=== PATIENT | female | born 1975 | race African-American/Black ===

== ENCOUNTER 2016-10-16 00:26 | Emergency (ER) | payer MEDICAID ==
[~2016-10-16] VITALS: Ht 170.2 cm; Wt 95.0 kg
[2016-10-16 00:31] VITALS: BP 218/114; PULSE 83; RESP 16; TEMP 99; O2SAT 100
[2016-10-16] MEDS ORDERED: ATEN50TA PO ×2 (01:30→05:18)
[2016-10-16] MEDS ORDERED: HYDR50TA3 PO (01:30)
[2016-10-16 01:35] VITALS: BP 192/117; PULSE 82; RESP 20; O2SAT 98
[2016-10-16 01:46] VITALS: BP 220/101; PULSE 78; RESP 20; O2SAT 98
[2016-10-16 02:14] LABS: AUTOMATED NEUTROPHIL # 6.1 TH/MM3 (1.8-7.7); BASOPHIL # 0.1 TH/MM3 (0-0.2); BASOPHIL % 0.8 % (0.0-2.0); EOSINOPHIL # 0.2 TH/MM3 (0-0.4); EOSINOPHIL % 1.8 % (0.0-4.0); HEMATOCRIT 34.8 % (35.0-46.0); HEMO FLAGS DIFF FINAL; LYMPH % 25.2 % (9.0-44.0); LYMPHOCYTE # 2.4 TH/MM3 (1.0-4.8); MEAN CELL VOLUME 80.9 FL (80.0-100.0); MEAN CORPUSCULAR HEMOGLOBIN 28.2 PG (27.0-34.0); MEAN CORPUSCULAR HGB CONC 34.9 % (32.0-36.0); MONO % 7.1 % (0.0-8.0); NEUT % 65.1 % (16.0-70.0); PLATELET COUNT 310 TH/MM3 (150-450); RED CELL DISTRIBUTION WIDTH 13.1 % (11.6-17.2); WHITE BLOOD COUNT 9.3 TH/MM3 (4.0-11.0)
[2016-10-16] MEDS ORDERED: LABETALOL HCL 100 MG/20 ML VIAL IV PUSH ONE (02:15)
--- NOTE | 2016-10-16 02:23 | RADRPT ---
EXAM DATE/TIME: 10/16/2016 01:50 [facility] COMPARISON: No previous studies available for comparison. INDICATIONS : Cough and throat pain. MEDICAL HISTORY : None. SURGICAL HISTORY : None. ENCOUNTER: Initial ACUITY: 1 day PAIN SCORE: 4/10 LOCATION: Bilateral chest FINDINGS: The lungs are clear without infiltrate, nodule, or mass. There is no appreciable pleural effusion fo r technique. Heart and mediastinum are unremarkable. CONCLUSION: No acute cardiopulmonary disease. Colby Langford MD on October 16, 2016 at 2:21 Board Certified Radiologist. This report was verified electronically.
[2016-10-16] MEDS ORDERED: ACETAMINOPHEN/HYDROcodone 325 MG/10 MG TAB PO ONE (02:30)
[2016-10-16 02:34] LABS: POTASSIUM 3.8 MEQ/L (3.5-5.1)
[2016-10-16] MEDS ORDERED: AZITHROMYCIN 250 MG TAB PO ONE (02:45)
[2016-10-16] MEDS ORDERED: KETOROLAC TROMETHAMINE 30 MG/ML (IVP) VIAL IV PUSH ONE ×2 (03:00→04:45)
[2016-10-16 03:16] VITALS: BP 201/92; PULSE 75; RESP 20; O2SAT 99
--- NOTE | 2016-10-16 03:41 | RADRPT ---
EXAM DATE/TIME: 10/16/2016 02:59 [facility] COMPARISON: No previous studies available for comparison. INDICATIONS : Cephalgia. RADIATION DOSE: 51.39 CTDIvol (mGy) MEDICAL HISTORY : Hypertension. SURGICAL HISTORY : Tubal ligation. Hysterectomy. ENCOUNTER: Initial ACUITY: 1 day PAIN SCALE: 5/10 LOCATION: cranial TECHNIQUE: Multiple contiguous axial images were obtained of the head. Using automated exposure control and adj ustment of the mA and/or kV according to patient size, radiation dose was kept as low as reasonably a chievable to obtain optimal diagnostic quality images. FINDINGS: There is no evidence for intracranial hemorrhage, mass effect, mass lesions, edema, or extra-axial fl uid collections. The visualized bony structures appear intact. The ventricles are normal size for t he patient's age. There are no signs of acute infarction for technique. CONCLUSION: Unremarkable study. Colby Langford MD on October 16, 2016 at 3:39 Board Certified Radiologist. This report was verified electronically.
[2016-10-16] MEDS ORDERED: hydrALAZINE HCL 50 MG TAB PO ONE (04:00)
[2016-10-16 04:23] VITALS: BP 185/104
[2016-10-16 04:38] LABS: BLOOD, URINE NEG (NEG); GLUCOSE,URINE NEG (NEG); KETONE, URINE NEG (NEG); NITRITE,URINE NEG (NEG); SQUAMOUS EPITHELIAL CELL URINE 3 /hpf (0-5); URINE COLOR LIGHT-YELLOW (YELLW/STRAW)
[2016-10-16 04:39] LABS: COMMENT (UR) CULT NOT INDICATED; CULTURE IF INDICATED CULT NOT INDICATED
--- NOTE | 2016-10-16 04:45 | PD ---
HPI Chief Complaint: ENT Complaint Time Seen by Provider: : Travel History International Travel<30 days: No Contact w/Intl Traveler<30days: No Traveled to known affect area: No History of Present Illness HPI The patient is a 41 year old female who presents to the [facility] emergency department with a history of a sore throat and right ear pain that she reports began on Saturday. She reports that she has been trying to suck on Goyal's cough drops and drink green tea, however the symptoms have not improved. She is unsure whether she's had any fevers associated with this. She reports having a bitemporal headache. The patient reports that she also has a history of high blood pressure, however she has been out of her medication for the last 2 days. The patient is currently staying in the hospital with her who was recently injured. The patient reports that she normally takes hydrocodone 10 mg twice a day for chronic pain related to osteoarthritis and fibromyalgia, however she is currently out of this. She has her point with her pain management doctor scheduled in a few days. The patient denies having any chest pain, chest pressure, or shortness of breath. She denies having any abdominal pain, nausea, vomiting, or diarrhea. She denies having any cough or nasal discharge. She denies having any urinary symptoms. The patient's recent history is complicated by undergoing a laparoscopic hysterectomy on October 06, 2016. She reports that she is healing well. [facility] Past Medical History Narrative Medical The patient's past medical history is significant for hypertension, osteoarthritis, fibromyalgia. Diminished Hearing: No Hypertension: Yes Tetanus Vaccination: < 5 Years Influenza Vaccination: No ?: Not : 5 Para: 5 Miscarriage: 0 Tubal Ligation: Yes (2008) Past Surgical History Narrative Surgical The patient's past surgical history is significant for laparoscopic hysterectomy on October 06, 2016. Gynecologic Surgery: Yes Hysterectomy: Yes (06/2016) Social History Alcohol Use: No Tobacco Use: No Substance Use: No Allergies-Medications (Allergen,Severity, Reaction): Coded Allergies: Penicillin (Verified Allergy, Mild, RASH, 10/16/16) Reported Meds & Prescriptions Reported Meds & Active Scripts Active Hydrocodone-Acetaminophen 5-325 mg Tab 1 Tab PO Q6H PRN Azithromycin 250 Mg Tab 250 Mg PO DIRECTED Take 2 tabs (500 mg) on day 1 then 1 tab daily x 4 days. Hydralazine (Hydralazine HCl) 50 Mg Tab 50 Mg PO TID 10 Days Take with a meal Atenolol 50 Mg Tab 50 Mg PO BID Reported Hydrochlorothiazide 50 Mg Tab 50 Mg PO BID Review of Systems Except as stated in HPI: all other systems reviewed are Neg General / Constitutional: No: Fever Eyes: No: Visual changes HENT: Positive: Headaches, Sore Throat, Earache, No: Rhinorrhea, Congestion, Neck Stiffness, Neck Pain, Ear Discharge Cardiovascular: No: Chest Pain or Discomfort Respiratory: No: Cough, Shortness of Breath Gastrointestinal: No: Nausea, Vomiting, Diarrhea, Abdominal Pain Genitourinary: No: Dysuria Musculoskeletal: No: Pain Skin: No Rash Neurologic: Positive: Headache, No: Weakness, Focal Abnormalities, Change in Mentation, Slurred Speech, Sensory Disturbance Psychiatric: No: Depression Endocrine: No: Polydipsia Hematologic/Lymphatic: No: Easy Bruising Physical Exam Narrative General: The patient is a well-developed well-nourished female in no acute distress. Head and Neck exam: Head is normocephalic atraumatic. Eyes: EOMI, pupils are equal round and reactive to light. Ears: Tympanic membrane on the right is erythematous with a blunted cone of light and clear fluid present posterior to it. The patient's left membrane is pearly with a good cone of light, no erythema or exudate. Nose: Midline septum with pink mucous membranes Mouth: Dentition unremarkable. Moist mucus membranes. Posterior oropharynx is erythematous with mild tonsillar hypertrophy, however no exudates. Uvula midline. Airway patent. Neck: No palpable lymphadenopathy. No nuchal rigidity. No thyromegaly. Cardiovascular: Regular rate and rhythm without murmurs, gallops, or rubs. Lungs: Clear to auscultation bilaterally. No wheezes, rhonchi, or rales. Abdomen: Soft, without tenderness to palpation in all 4 quadrants of the abdomen. No guarding, rebound, or rigidity. Normal bowel sounds are audible. No tenderness on palpation of McBurney's point. Extremities: No clubbing, cyanosis, or edema. 2+ pulses in all 4 extremities. No calf tenderness on palpation. Back: No costovertebral angle tenderness to palpation. Neurologic Exam: Grossly nonfocal. Skin Exam: No rash noted. Intact skin that is warm and dry. Data Data Last Documented VS Vital Signs Date Time Temp Pulse Resp B/P Pulse Ox O2 Delivery O2 Flow Rate FiO2 10/16/16 04:23 185/104 10/16/16 03:16 75 20 99 10/16/16 00:31 99.0 Room Air Orders Group A Rapid Strep Screen (10/16/16 01:39) Electrocardiogram (10/16/16 01:39) Complete Blood Count With Diff (10/16/16 01:39) Basic Metabolic Panel (Bmp) (10/16/16 01:39) Urinalysis - C+S If Indicated (10/16/16 01:39) Chest, Single Ap (10/16/16 01:39) Ct Brain W/O Iv Contrast(Rout) (10/16/16 01:39) Ed Urine Pregnancytest Poc (10/16/16 01:39) Labetalol Inj (Trandate Inj) (10/16/16 02:15) Strep Culture (Group A) (10/16/16 01:50) Acetamin-Hydrocod 325-10 Mg ([place] 10-32 (10/16/16 02:30) Azithromycin (Zithromax) (10/16/16 02:45) Ketorolac Inj (Toradol Inj) (10/16/16 03:00) Hydralazine (Apresoline) (10/16/16 04:00) Ketorolac Inj (Toradol Inj) (10/16/16 04:45) Labs Laboratory Tests Test 10/16/16 10/16/16 02:00 04:10 White Blood Count 9.3 TH/MM3 Red Blood Count 4.30 MIL/MM3 Hemoglobin 12.1 GM/DL Hematocrit 34.8 % Mean Corpuscular Volume 80.9 FL Mean Corpuscular Hemoglobin 28.2 PG Mean Corpuscular Hemoglobin 34.9 % Concent Red Cell Distribution Width 13.1 % Platelet Count 310 TH/MM3 Mean Platelet Volume 8.1 FL Neutrophils (%) (Auto) 65.1 % Lymphocytes (%) (Auto) 25.2 % Monocytes (%) (Auto) 7.1 % Eosinophils (%) (Auto) 1.8 % Basophils (%) (Auto) 0.8 % Neutrophils # (Auto) 6.1 TH/MM3 Lymphocytes # (Auto) 2.4 TH/MM3 Monocytes # (Auto) 0.7 TH/MM3 Eosinophils # (Auto) 0.2 TH/MM3 Basophils # (Auto) 0.1 TH/MM3 CBC Comment DIFF FINAL Differential Comment Sodium Level 141 MEQ/L Potassium Level 3.8 MEQ/L Chloride Level 104 MEQ/L Carbon Dioxide Level 29.0 MEQ/L Anion Gap 8 MEQ/L Blood Urea Nitrogen 17 MG/DL Creatinine 0.71 MG/DL Estimat Glomerular Filtration 110 ML/MIN Rate Random Glucose 117 MG/DL Calcium Level 9.1 MG/DL Urine Color LIGHT-YELLOW Urine Turbidity CLEAR Urine pH 7.0 Urine Specific [place] 1.013 Urine Protein NEG mg/dL Urine Glucose (UA) NEG mg/dL Urine Ketones NEG mg/dL Urine Occult Blood NEG Urine Nitrite NEG Urine Bilirubin NEG Urine Urobilinogen LESS THAN 2.0 MG/DL Urine Leukocyte Esterase NEG Urine RBC LESS THAN 1 /hpf Urine WBC 1 /hpf Urine Squamous Epithelial 3 /hpf Cells Microscopic Urinalysis Comment CULT NOT INDICATED MDM Medical Decision Making Medical Screen Exam Complete: Yes Emergency Medical Condition: Yes Medical Record Reviewed: Yes Interpretation(s) Last Impressions Head CT 10/16/16138 Signed Impressions: Service Date/Time: Sunday, October 16, 2016 02:59 - CONCLUSION: Unremarkable study. Colby Langford MD Chest X-Ray 10/16/16138 Signed Impressions: Service Date/Time: Sunday, October 16, 2016 01:50 - CONCLUSION: No acute cardiopulmonary disease. Colby Langford MD Differential Diagnosis Strep pharyngitis, versus otitis media, versus upper respiratory infection, versus intracranial hemorrhage Narrative Course During the course of the patients emergency department visit, the patients history, examination, and differential diagnosis were reviewed with the patient. The patient had IV access obtained and blood work sent for analysis. The patient was placed on a cardiac surgeon with oximetry and blood pressure monitoring. The patient was initially provided hydrocodone 10 mg one by mouth times one, labetalol 10 mg IV for hypertension. The patient was given azithromycin 1 by mouth times one. The patients laboratory studies were reviewed and remarkable for a CBC that is unremarkable. Basic metabolic profile remarkable for a glucose of 117, urinalysis unremarkable. Radiology studies were reviewed and remarkable for the patient's chest x-ray showed no acute abnormality. CT scan of the brain showed no acute abnormality. The patient was given her usual dose of hydralazine 50 mg by mouth 1. The patient's blood pressure began to improve. The patient will be discharged home with a prescription for azithromycin, and a refill on her hydralazine and atenolol that she is currently out of. We discussed the importance of not running out of her blood pressure medication in the future. The patient is resting comfortably and feels better, is alert and in no distress. The patients results and examination findings were discussed with the patient. The repeat examination is unremarkable and benign. The history, exam, diagnostic testing, and current condition do not suggest any significant pathology to warrant further testing, continued ED treatment, admission, or surgical evaluation at this point. The vital signs have been stable. The patient does not have uncontrollable pain, intractable vomiting, or other significant symptoms. The patient's condition is stable and appropriate for discharge. The patient will pursue further outpatient evaluation with a primary care physician or other designated or consulting physician as indicated in the discharge instructions. The patient expressed understanding and was agreeable with this plan. Diagnosis Primary Impression: Hypertension Qualified Code: I10 - Essential hypertension Additional Impressions: Noncompliance with medication regimen Acute pharyngitis Qualified Code: J02.9 - Acute pharyngitis, unspecified etiology Right acute otitis media Upper respiratory infection Qualified Code: J06.9 - Upper respiratory tract infection, unspecified type Referrals: Primary Care Physician Patient Instructions: General Instructions, Hypertension (ED), Otitis Media (ED ), Upper Respiratory Infection (ED) Med/Other Pt SpecificInfo: Prescription(s) given Scripts Hydrocodone-Acetaminophen 5-325 mg Tab1 Tab PO Q6H PRN (PAIN) #9 TAB Ref 0 Prov:Peri Ramírez MD 10/16/16 Azithromycin 250 Mg [id number] Mg PO DIRECTED #6 TAB Ref 0 Take 2 tabs (500 mg) on day 1 then 1 tab daily x 4 days. Prov:Peri Ramírez MD 10/16/16 Hydralazine 50 Mg Tab50 Mg PO TID 10 Days Ref 0 Take with a meal Prov:Peri Ramírez MD 10/16/16 Atenolol 50 Mg Tab50 Mg PO BID #14 TAB Ref 0 Prov:Peri Ramírez MD 10/16/16 Disposition: 01 DISCHARGE HOME Condition: Stable Peri Ramírez MD October 16, 2016 04:45
[2016-10-16] MEDS ORDERED: HYDR-3516 PO (05:18)
[2016-10-16] MEDS ORDERED: HYDR50TA15 PO (05:18)
[2016-10-16] MEDS ORDERED: AZIT250T3 PO (05:18)
== END 2016-10-16 05:44 | disposition home or self-care (01) ==
LOC: NEPC 00:26
DX: J02.9 Acute pharyngitis, unspecified (principal); J06.9 Acute upper respiratory infection, unspecified; I10 Essential (primary) hypertension; M19.90 Unspecified osteoarthritis, unspecified site; M79.7 Fibromyalgia; Z91.14 Patient's other noncompliance with medication regimen
CPT/HCPCS: 70450; 71010; 80048; 81001; 84703; 85025; 87081; 87880; 96374; 96375; 96376; 99285; J1885